=== PATIENT | male | born 1955 | race Caucasian/White ===

== ENCOUNTER 2022-07-21 15:45 | Emergency (ER) | payer OTHER ==
[~2022-07-21] VITALS: Ht 160 cm; Wt 74.8 kg
== END 2022-07-21 19:05 | disposition home or self-care (01) ==
LOC: ER 15:45
DX: M54.9 Dorsalgia, unspecified (principal); M25.562 Pain in left knee; M25.572 Pain in left ankle and joints of left foot; W18.30XA Fall on same level, unspecified, initial encounter; Z88.5 Allergy status to narcotic agent
CPT/HCPCS: 72070; 73560-LT; 73600; 73620; A9270; J1885

== ENCOUNTER 2022-08-20 23:42 | Emergency (ER) | payer OTHER ==
[~2022-08-20] VITALS: Ht 160 cm; Wt 85.3 kg
== END 2022-08-21 01:19 | disposition home or self-care (01) ==
LOC: ER 23:42
DX: S09.90XA Unspecified injury of head, initial encounter (principal); S40.011A Contusion of right shoulder, initial encounter; S70.01XA Contusion of right hip, initial encounter; W06.XXXA Fall from bed, initial encounter; Z88.5 Allergy status to narcotic agent
CPT/HCPCS: 70450; 73502; 99284-25; A9270